=== PATIENT | male | born 1965 | race Hispanic/Latino ===

== ENCOUNTER 2018-09-24 06:47 | Outpatient (CLI) | payer SELFPAY ==
[2018-09-24 07:16] LABS: ALT (SGPT) 26 U/L (8-55); AST (SGOT) 18 U/L (5-34); Alkaline Phosphatase 67 U/L (40-150); Anion Gap 11 mmol/L (10-20); BUN (Urea Nitrogen) 22 mg/dL (8.4-25.7); Bilirubin, Total 0.5 mg/dL (0.2-1.2); Calc. Creatinine Clearance 0 mL/min (70-130); Calcium 9.4 mg/dL (7.8-10.44); Carbon Dioxide 26 mmol/L (22-29); Cardiac Risk 6.7 (Less than 4.5); Chloride 107 mmol/L (98-107); Cholesterol 209 mg/dl (< 200 Desired); Estimated GFR-MDRD 79; Globulin 2.9 g/dL (2.4-3.5); Glucose 118 mg/dL (70-105); HDL Cholesterol 31 mg/dL (>60 Neg Risk); LDL Cholesterol, Calculated 113 mg/dL; Potassium 4.1 mmol/L (3.5-5.1); Protein, Total 6.9 g/dL (6.0-8.3); Sodium 140 mmol/L (136-145); Triglycerides 324 mg/dL (Less than 150)
[2018-09-24 07:43] LABS: Bilirubin Negative (Negative); Blood, Urine Trace (Negative); Glucose, Urine (Dipstick) Negative (Negative); Leukocyte Trace (Negative); Nitrite Negative (Negative); Protein, Urine (Dipstick) Negative (Neg-Trace); Urobilinogen 0.2 mg/dL (0.2-1.0); pH, Urine 5.5 (5.0-9.0)
[2018-09-24 07:56] LABS: Specific Gravity, Urine 1.025 (1.002-1.036)
[2018-09-24 10:40] LABS: Bacteria/HPF Rare-Few HPF (None Seen); Clarity Slightly Cloudy (Clear); Hyaline Casts/LPF NONE SEEN LPF (0-3 Hyaline); RBC/HPF 0-3 HPF (0-3); Squamous Epithelial 0-3 HPF (0-3)
== END 2018-09-24 06:48 | disposition home or self-care (01) ==
LOC: SCSLAB 06:47
PROVIDERS: ATTEND Family Medicine
DX: E78.2 Mixed hyperlipidemia (principal); R73.01 Impaired fasting glucose; R30.0 Dysuria
CPT/HCPCS: 36415; 80053; 80061; 81001; 87491; 87591